=== PATIENT | female | born 1965 | race Caucasian/White ===

== ENCOUNTER → 2016-04-30 | Outpatient (CLI) | payer OTHER ==
--- NOTE | 2016-04-30 08:35 | RAD ---
EXAM DESCRIPTION: XR KNEE 4 OR MORE VIEWS CLINICAL HISTORY: PAIN IN LEFT KNEE COMPARISON: None. TECHNIQUE: Three views. FINDINGS: A total knee arthroplasty is observed in place. No evidence of loosening or infection is detected. No evidence of a fracture is seen. IMPRESSION: Total knee arthroplasty. No evidence of loosening or infection is detected. Electronically signed by: Jean Perez MD 04/30/2016 08:34
--- NOTE | 2016-04-30 08:37 | RAD ---
EXAM DESCRIPTION: XR PELVIS 1-2 VIEWS CLINICAL HISTORY: PAIN IN LEFT HIP COMPARISON: None Available. TECHNIQUE: AP pelvis. FINDINGS: Phleboliths are observed in the pelvis. No fracturing is detected. The proximal femurs are normal in appearance. Mild degenerative changes are observed the lower lumbar spine. IMPRESSION: Unremarkable pelvis. Electronically signed by: Jean Perez MD 04/30/2016 08:34
== END ==
LOC: RAD 08:01
PROVIDERS: ATTEND Orthopaedic Surgery
DX: M25.562 Pain in left knee (principal); M25.552 Pain in left hip; Z96.652 Presence of left artificial knee joint

== ENCOUNTER → 2016-05-02 | Outpatient (CLI) | payer OTHER ==
--- NOTE | 2016-05-02 13:52 | NM ---
EXAM DESCRIPTION: NM BONE SCAN WHOLE BODY THREE PHASE CLINICAL HISTORY: Patient has a left knee replacement and is having left knee pain. COMPARISON: None Available. RADIOPHARMACEUTICAL: 28.2 mCi technetium 99 M MDP IV FINDINGS: Radionuclide angiogram of the knees demonstrates no increased flow/asymmetry. Blood pool imaging demonstrates no increased activity on either side. Delayed imaging demonstrates abnormal increased uptake on both sides of the knee joint. Uptake is most prominent in the patella but is also prominent in the posterolateral tibial plateau region. IMPRESSION: 1. The findings are considered negative for infected prosthesis. Increased uptake, while present, is significantly decreased in prominence when compared with the November 2014 study making loosening seen unlikely. Electronically signed by: Tarik Noble MD 05/02/2016 13:50
== END ==
LOC: NM 08:59
PROVIDERS: ATTEND Orthopaedic Surgery
DX: M25.562 Pain in left knee (principal); Z96.652 Presence of left artificial knee joint
CPT/HCPCS: 78315; A9503